=== PATIENT | female | born 1995 | race African-American/Black ===

== ENCOUNTER 2022-10-06 08:35 | Emergency (ER) | payer OTHER ==
[2022-10-06] MEDS ORDERED: Ketorolac Tromethamine 30 MG/ML VIAL ONE (09:35)
[2022-10-06] MEDS ORDERED: Acetaminophen 500 MG TAB ONE (09:35)
[2022-10-06 10:08] LABS: Hemoglobin 12.4 g/dL (12.0-15.5); MDiff Complete? YES; Mean Corpuscular HGB CONC 32.6 g/dL (32.0-36.0); Mean Corpuscular Hemoglobin 28.8 pg (27.0-33.0); Mean Corpuscular Volume 88.4 fl (81.6-98.3); Mean Platelet Volume 9.1 fl (7.4-10.4); Platelet Count 361 10x3/uL (150-450); White Blood Cell (WBC) Count 8.1 10x3/uL (3.5-10.5)
[2022-10-06 10:18] LABS: ALT (SGPT) 14 U/L (8-55); AST (SGOT) 20 U/L (5-34); Albumin 4.3 g/dL (3.5-5.0); Alkaline Phosphatase 56 U/L (40-110); Anion Gap 16 mmol/L (10-20); BUN (Urea Nitrogen) 10 mg/dL (7.0-18.7); Bilirubin, Total 0.4 mg/dL (0.2-1.2); Calc. Creatinine Clearance 0 mL/min (70-130); Calcium 9.6 mg/dL (7.8-10.44); Carbon Dioxide 20 mmol/L (22-29); Chloride 103 mmol/L (98-107); Estimated GFR 77; Globulin 4.2 g/dL (2.4-3.5); Glucose 112 mg/dL (70-105); Potassium 4.3 mmol/L (3.5-5.1); Protein, Total 8.5 g/dL (6.0-8.3); Sodium 135 mmol/L (136-145)
[2022-10-06 10:45] LABS: Lymphocytes 8 % (21-51); Monocytes 14 % (0-10); Neutrophil 77 % (42-75); Platelet Morphology Comment Appears Adequate; Reactive Lymphocytes 1 % (0-10)
[2022-10-06 10:46] LABS: RBC Morphology Normal
== END 2022-10-06 12:10 | disposition home or self-care (01) ==
LOC: CSHERS 08:35
DX: U07.1 COVID-19 (principal)
CPT/HCPCS: 71045; 80053; 85025; 87081; 87430; 87804; 93005; 96361; 96374; J1885; U0003; U0005